=== PATIENT | male | born 1995 | race Caucasian/White ===

== ENCOUNTER 2019-09-22 15:03 | Emergency (ER) | payer BC ==
[~2019-09-22] VITALS: Ht 180.3 cm; Wt 77.1 kg
[2019-09-22 15:34] VITALS: BP_SYST 122
--- NOTE | 2019-09-22 15:35 | NUR ---
Patient triaged and placed in waiting room. VSS and patient appears in no acute distress at this time. Awaiting available bed, and MD notified of need for MSE.
--- NOTE | 2019-09-22 16:10 | NUR ---
Patient to ER bed h1 for evaluation. Side rails up.
--- NOTE | 2019-09-22 16:12 | NUR ---
ER Dr. Connelly at bedside examining patient.
[2019-09-22] MEDS ORDERED: KETOROLAC TROMETHAMINE 60 MG/2 ML VIAL IM ONE (16:15)
--- NOTE | 2019-09-22 16:45 | NUR ---
Patient given written and verbal discharge instructions and verbalizes understanding. ER MD discussed with patient the results and treatment provided. Patient in stable condition. ID arm band removed. Patient educated on pain management and to follow up with PMD. Pain Scale 0. Opportunity for questions provided and answered. Medication side effect fact sheet provided.
[2019-09-22 16:49] VITALS: BP_SYST 122
== END 2019-09-22 16:45 | disposition home or self-care (01) ==
LOC: SED 15:03
DX: J32.9 Chronic sinusitis, unspecified (principal); F14.90 Cocaine use, unspecified, uncomplicated; F12.90 Cannabis use, unspecified, uncomplicated
CPT/HCPCS: 96372; 99283; J1885

== ENCOUNTER 2021-02-13 05:48 | Emergency (ER) | payer BC ==
[~2021-02-13] VITALS: Ht 180.3 cm; Wt 99.8 kg
[2021-02-13 05:59] VITALS: BP_SYST 130
--- NOTE | 2021-02-13 05:59 | NUR ---
Patient to ER bed 5 to gown for evaluation. Side rails up. Report given to Marlys BLACKWOOD.
--- NOTE | 2021-02-13 06:00 | NUR ---
PATIENT AAOX4 AND AMBULATORY C/O LEFT UPPER ARM BUG BITE BY A SPIDER ON YESTERDAY. TODAY PATIENT COMPLAINING OF LEFT UPPER ARM INCREASE IN PAIN, SWELLING, ITCHINESS. CURRENTLY RATING PAIN ON 4/10 ON THE PAIN SCALE. VSS. PATIENT STATED TAKING IBUPROFEN AT HOME.
--- NOTE | 2021-02-13 06:11 | NUR ---
ER at bedside examining patient.
[2021-02-13] MEDS ORDERED: PRED20TA PO (06:21)
[2021-02-13] MEDS ORDERED: DIPH25CA83 PO (06:21)
[2021-02-13 06:29] VITALS: BP_SYST 130
--- NOTE | 2021-02-13 06:29 | NUR ---
Patient given written and verbal discharge instructions and verbalizes understanding. DR. BHAVNA BURNETT MD discussed with patient the results and treatment provided. Patient in stable condition. ID arm band removed. Rx of BENADRYL, PREDNISONE given. Patient educated on pain management and to follow up with PMD. Pain Scale 0/10. Opportunity for questions provided and answered. Medication side effect fact sheet provided.
== END 2021-02-13 06:29 | disposition home or self-care (01) ==
LOC: SED 05:48
DX: R21 Rash and other nonspecific skin eruption (principal); Z79.899 Other long term (current) drug therapy
CPT/HCPCS: 99283